=== PATIENT | male | born 1945 | race Hispanic/Latino ===

== ENCOUNTER 2019-09-01 04:36 | Emergency (ER) | payer OTHER ==
[2019-09-01 05:19] LABS: BASOPHILS % (AUTO) 0.3 % (0.0-5.0); EOSINOPHILS % (AUTO) 3.5 % (0.0-8.0); HEMATOCRIT 40.2 % (42-54); LYMPHOCYTES % (AUTO) 12.9 % (21.0-51.0); MEAN CORPUSCULAR HEMOGLOBIN 29.5 pg (27.0-33.0); MEAN CORPUSCULAR HGB CONC 35.1 g/dL (32.0-36.0); MEAN CORPUSCULAR VOLUME 84.1 fL (79-99); MONOCYTES % (AUTO) 8.1 % (3.0-13.0); NEUTROPHILS % (AUTO) 74.9 % (40.0-77.0); PLATELET COUNT (AUTO) 170 K/uL (130-400); RED BLOOD CELL COUNT(AUTO) 4.78 MIL/uL (4.50-6.20); RED CELL DISTRIBUTION WIDTH 12.2 % (11.0-15.5); WHITE BLOOD COUNT (AUTO) 6.8 K/uL (4.8-10.8)
[2019-09-01 05:21] LABS: APPEARANCE,URINE Turbid (CLEAR); BILIRUBIN,URINE Negative (NEGATIVE); COLOR,URINE Yellow (YELLOW); GLUCOSE, URINE (UA) Negative (NEGATIVE); KETONES,URINE Negative (NEGATIVE); LEUKOCYTE ESTERASE ,URINE Small (NEGATIVE); NITRATE,URINE Negative (NEGATIVE); OCCULT BLOOD,URINE Large (NEGATIVE); PROTEIN,URINE POS 1+ mg/dL (NEGATIVE)
[2019-09-01 05:34] LABS: INR 0.98 (0.85-1.15); PARTIAL THROMBOPLASTIN TIME 28.2 SEC (26.3-35.5); PROTHROMBIN TIME 10.6 SEC (9.6-11.6)
[2019-09-01 05:36] LABS: BACTERIA,URINE Few /HPF (None Seen); RBC,URINE 51-100 /HPF (0-1)
[2019-09-01 05:37] LABS: CREATININE 2.2 mg/dL (0.5-1.5); POTASSIUM 3.6 mmol/L (3.5-5.1)
[2019-09-01 05:42] LABS: ALBUMIN 3.7 g/dL (3.5-5.0); BILIRUBIN,TOTAL 0.9 mg/dL (0.2-1.0); TOTAL PROTEIN, SERUM 7.1 g/dL (6.0-8.3)
[2019-09-01] MEDS ORDERED: CEFTRIAXONE SODIUM 1 GM ONE (05:50)
[2019-10-09] MEDS ORDERED: AUGMENTIN PO (15:07)
[2019-10-10] MEDS ORDERED: AMOX1TAB15 PO (07:31)
== END 2019-09-01 06:57 | disposition home or self-care (01) ==
LOC: EDH 04:36
DX: R33.9 Retention of urine, unspecified (principal); R82.71 Bacteriuria
CPT/HCPCS: 36415; 51702; 80053; 81001; 83605; 83690; 85025; 85610; 85730; 87088; 93005; 96374; 99284; J0696

== ENCOUNTER 2019-09-24 16:30 | Observation (INO) | payer OTHER ==
[~2019-09-24] VITALS: Ht 167.6 cm; Wt 57.6 kg
[2019-09-24] MEDS ORDERED: DIATR MEGLU/DIATRIZOATE SODIUM 30 ML BOTTLE ONE (16:56)
[2019-09-24] MEDS ORDERED: LEVOFLOXACIN 500 MG/D5W 100 ML 100 ML ONE (16:57)
[2019-09-24] MEDS ORDERED: MORPHINE SULFATE 4 MG/1ML SYG IVP PRN (17:00)
[2019-09-24] MEDS ORDERED: ZOLPIDEM TARTRATE 5 MG TAB PO PRN (17:00)
[2019-09-24] MEDS ORDERED: NITROGLYCERIN 0.4 MG SL TAB SL PRN (17:00)
[2019-09-24] MEDS ORDERED: LIDOCAINE HCL-MPF 1% 2ML VIAL IJ PRN (17:00)
[2019-09-24] MEDS ORDERED: SODIUM CHLORIDE 0.9% 10 ML VIAL IVP SCH (17:00)
[2019-09-24] MEDS ORDERED: CLONIDINE HCL 0.1 MG TABLET PO PRN (17:00)
[2019-09-24] MEDS ORDERED: IPRATROPIUM/ALBUTEROL SULFATE 3 ML SOLUTION IH PRN (17:00)
[2019-09-24] MEDS ORDERED: ONDANSETRON HCL 4 MG/2 ML VIAL IVP PRN (17:00)
[2019-09-24] MEDS ORDERED: POTASSIUM CHLORIDE 20 MEQ ERTAB PO PRN (17:00)
[2019-09-24] MEDS ORDERED: LEVOFLOXACIN 500 MG/D5W 100 ML 100 ML IV SCH (17:00)
[2019-09-24] MEDS ORDERED: DIPHENHYDRAMINE HCL 25 MG CAPSULE PO PRN (17:00)
[2019-09-24] MEDS ORDERED: POTASSIUM CHLORIDE 20MEQ/100ML 100 ML IV PRN (17:00)
[2019-09-24] MEDS ORDERED: MAG HYDROX/AL HYDROX/SIMETH ES 30 ML SUSP UDCUP PO PRN (17:00)
[2019-09-24] MEDS ORDERED: POTASSIUM CHLORIDE 10% ELIXIR 20 MEQ/15 ML UDCUP PO PRN (17:00)
[2019-09-24] MEDS ORDERED: ACETAMINOPHEN 325 MG TAB PO PRN ×2 (17:00)
[2019-09-24] MEDS ORDERED: DiphenhydrAMINE HCL 50 MG/ML VIAL IVP PRN (17:00)
[2019-09-24] MEDS ORDERED: GUAIFENESIN-DM 200/20 MG 10 ML PO PRN (17:00)
[2019-09-24] MEDS ORDERED: LACTULOSE 20 GM/30 ML UDCUP PO PRN (17:00)
[2019-09-24 17:03] LABS: BASOPHILS % (AUTO) 0.5 % (0.0-5.0); EOSINOPHILS % (AUTO) 4.5 % (0.0-8.0); HEMATOCRIT 42.9 % (42-54); LYMPHOCYTES % (AUTO) 22.9 % (21.0-51.0); MEAN CORPUSCULAR HEMOGLOBIN 29.6 pg (27.0-33.0); MEAN CORPUSCULAR HGB CONC 34.3 g/dL (32.0-36.0); MEAN CORPUSCULAR VOLUME 86.5 fL (79-99); MONOCYTES % (AUTO) 8.4 % (3.0-13.0); NEUTROPHILS % (AUTO) 63.2 % (40.0-77.0); PLATELET COUNT (AUTO) 168 K/uL (130-400); RED BLOOD CELL COUNT(AUTO) 4.96 MIL/uL (4.50-6.20); RED CELL DISTRIBUTION WIDTH 12.3 % (11.0-15.5); WHITE BLOOD COUNT (AUTO) 5.7 K/uL (4.8-10.8)
[2019-09-24 17:07] LABS: APPEARANCE,URINE Clear (CLEAR); BILIRUBIN,URINE Negative (NEGATIVE); COLOR,URINE Yellow (YELLOW); GLUCOSE, URINE (UA) Negative (NEGATIVE); KETONES,URINE Negative (NEGATIVE); LEUKOCYTE ESTERASE ,URINE Trace (NEGATIVE); NITRATE,URINE Negative (NEGATIVE); OCCULT BLOOD,URINE Large (NEGATIVE); PH,URINE 5.5 (5.0-8.0); PROTEIN,URINE POS 1+ mg/dL (NEGATIVE); UROBILINOGEN,URINE 0.2 mg/dL (0.2-1.0)
[2019-09-24 17:12] LABS: CREATININE 0.9 mg/dL (0.5-1.5); POTASSIUM 4.1 mmol/L (3.5-5.1)
[2019-09-24 17:14] LABS: BACTERIA,URINE Rare /HPF (None Seen); SQUAMOUS EPITHELIAL CELL,UR Rare /HPF (0-2)
[2019-09-24 17:17] LABS: ALBUMIN 3.5 g/dL (3.5-5.0); BILIRUBIN,TOTAL 0.5 mg/dL (0.2-1.0); TOTAL PROTEIN, SERUM 7.1 g/dL (6.0-8.3)
[2019-09-24 17:30] VITALS: BP 143/83
[2019-09-24] MEDS ORDERED: TAMS-1 PO (18:06)
[2019-09-24] MEDS ORDERED: IOHEXOL-350 75 ML VIAL IV ONE (19:21)
--- NOTE | 2019-09-24 19:30 | NUR ---
finger paged; urinary retention pending call back.
[2019-09-24 20:00] VITALS: BP 155/75
[2019-09-24] MEDS: FAMOTIDINE 20MG TAB 20 MG TAB PO SCH (20:57)
[2019-09-24 23:45] VITALS: BP 132/73
[2019-09-25 04:00] VITALS: BP 131/76
[2019-09-25 08:00] VITALS: BP 119/82
[2019-09-25] MEDS: FAMOTIDINE 20MG TAB 20 MG TAB PO SCH (08:40)
--- NOTE | 2019-09-25 10:16 | NUR ---
MED RECORD REVIEWED, ORDER FOR DISCHARGE, NO CONCERNS VOICED BY PT OR NURSE, NO TRIGGERS, DETAILED CM ASSESSMENT DEFERRED AT THIS TIME Addendum: 09/25/19 at 1018 by JEANNETTE MACDONALD RN CM Amended: Links added.
--- NOTE | 2019-09-25 10:24 | NUR ---
DISCHARGE PATIENT GIVEN DISCHARGE INSTRUCTIONS VIA TEACH BACK. 20G PIV TO RAC DISCONTINUED, TIP INTACT. PATIENT DISCHARGED WITH PEREZ CATHETER IN PLACE. PATENT STATES IS AWARE ON HOW TO EMPTY PEREZ BAG. PATIENT TO FOLLOW UP WITH DR. DUNN AND DR. RESENDIZ IN 1 WEEK. NO RX GIVEN. PATIENT STABLE AT THIS TIME, WALKED TO [facility] FOR DISCHARGE BY CASTILLO ABDI.
[2019-10-09] MEDS ORDERED: AUGMENTIN PO (15:07)
[2019-10-10] MEDS ORDERED: AMOX1TAB15 PO (07:31)
== END 2019-09-25 10:30 | disposition home or self-care (01) ==
LOC: EDH 16:30 → INTOOBSV 16:46 → EDHIP 16:46 → 3AH 17:12
PROVIDERS: ADMIT Family Medicine; ATTEND Family Medicine
DX: N40.1 Benign prostatic hyperplasia with lower urinary tract symptoms (principal); R33.8 Other retention of urine; I25.10 Atherosclerotic heart disease of native coronary artery without angina pectoris
CPT/HCPCS: 36415; 74178; 80053; 81001; 84153; 85025; 87077; 87088; 87186; 94664; 96365; 99284; G0378 ×9; J1956; Q9963; Q9967